=== PATIENT | female | born 1965 | race African-American/Black ===

== ENCOUNTER 2018-07-22 13:48 | Emergency (ER) | payer MEDICAID ==
[~2018-07-22] VITALS: Ht 175.3 cm; Wt 86.0 kg
[2018-07-22 13:53] VITALS: BP 127/78
== END 2018-07-22 15:43 | disposition home or self-care (01) ==
LOC: ER 15:13
DX: M79.662 Pain in left lower leg (principal); I10 Essential (primary) hypertension; E11.9 Type 2 diabetes mellitus without complications; E78.5 Hyperlipidemia, unspecified
CPT/HCPCS: 99282

== ENCOUNTER 2018-11-25 16:35 | Emergency (ER) | payer MEDICAID ==
[~2018-11-25] VITALS: Ht 175.3 cm; Wt 82.0 kg
[2018-11-25] MEDS ORDERED: IBUPROFEN 600MG TABLET PO ONE (18:00)
[2018-11-25 19:25] VITALS: BP 138/91
== END 2018-11-25 19:27 | disposition home or self-care (01) ==
LOC: ER 16:55
DX: S20.20XA Contusion of thorax, unspecified, initial encounter (principal); V43.52XA Car driver injured in collision with other type car in traffic accident, initial encounter; Y93.89 Activity, other specified; Y92.488 Other paved roadways as the place of occurrence of the external cause
CPT/HCPCS: 36415; 71045; 84484; 93005; 99284